=== PATIENT | male | born 1995 | race African-American/Black ===

== ENCOUNTER 2023-09-13 18:32 | Emergency (ER) | payer BC ==
[~2023-09-13] VITALS: Ht 167.6 cm; Wt 75.0 kg
[~2023-09-13 18:32] MED LIST: ALBU0.084
[2023-09-13 18:53] LABS: Basophils # (auto) 0 10 ^3/uL (0-0.2); Eosinophils # (auto) 0.1 10 ^3/uL (0-0.8); Mean Corpuscular Volume 79.7 fL (80.0-100.0); Neutrophils # (auto) 1.7 10 ^3/uL (1.6-8.6); Nucleated Red Blood Cells % 0.2 %; White Blood Cell 5.1 10^3/uL (4.4-10.8)
[2023-09-13 18:54] LABS: Basophils % (auto) 0.7 % (0.0-2.0); Eosinophils % (auto) 1.8 % (0.0-7.0); Hematocrit 47.5 % (41.0-53.0); Hemoglobin 15.9 g/dL (13.5-17.5); Lymphocytes # (auto) 2.9 10 ^3/uL (0.4-5.4); Mean Corpuscular Hemoglobin 26.7 pg (28.0-32.0); Mean Corpuscular Hgb Conc. 33.4 g/dL (32.0-36.0); Monocytes # (auto) 0.4 10 ^3/uL (0-1.3); Monocytes % (auto) 7.8 % (0.0-12.0); Neutrophils % (auto) 33.3 % (37.0-80.0); Red Blood Cells 5.95 10^6/uL (4.5-5.90); Red Cell Distribution Width 14.1 % (11.8-14.3)
[2023-09-13 19:02] LABS: Chloride 104 mmol/L (98-107); Potassium 3.5 mmol/L (3.5-5.1); Sodium 139 mmol/L (136-145)
[2023-09-13 19:03] LABS: Anion Gap 8 (5-15); Calcium 9.8 mg/dL (8.7-10.4); Carbon Dioxide 27 mmol/L (20-30)
[2023-09-13 19:08] LABS: BUN/Creatinine Ratio 8.9 (10.0-20.0); Blood Urea Nitrogen 11 mg/dL (9-23); Glucose 109 mg/dL (74-106); Lipase 41 U/L (12-53); Lymphocytes % (auto) 56.4 % (10.0-50.0)
[2023-09-13 20:34] LABS: Urine Bacteria None Seen /hpf (None Seen)
[2023-09-13 20:36] VITALS: BP 133/76; PULSE 89; RESP 18; TEMP 98.1; O2SAT 100
[2023-09-13 21:12] LABS: Urine Blood Negative /uL (Negative); Urine Clarity Clear (Clear); Urine Color Light-Yellow (Yellow); Urine Protein, UAD Negative (Negative); Urine Specific Gravity 1.012 (1.001-1.035); Urine Urobilinogen Normal (Negative); Urine WBC <1 /hpf (0 - 3); Urine pH 6.5 (5.0-9.0)
== END 2023-09-13 22:15 | disposition home or self-care (01) ==
LOC: EDBD 18:32 → ER 18:32
DX: R53.1 Weakness (principal); Z79.899 Other long term (current) drug therapy
CPT/HCPCS: 36415; 80048; 81001; 83605; 83690; 84484; 85025; 93005